=== PATIENT | female | born 1975 | race Caucasian/White ===

== ENCOUNTER 2018-06-15 07:24 | Day surgery (SDC) | payer OTHER ==
[~2018-06-15] VITALS: Ht 160 cm; Wt 104.1 kg
[~2018-06-15 07:24] MED LIST: ALPR.5 PO; AZIT250 PO; Albuterol17 G1 INH; CLINGEL IV; FAMO40 PO; HYDACE5 PO; HYDR1TAB94 PO; IBUP600 PO; IBUP800 PO; KETO10 PO; METO10 PO; MISO200 PO; MULVITMINE PO; Monodox100 MG PO; NAPR500 PO; Norco 5-325 Ta1 EACH PO; OXYACE5T PO; PANT20 PO; PRED10 PO; PREN-16 PO; PROBIOTIC1 EAC1 PO; PROCODE120 PO; PROM25 PO; Percocet 5-3251 EACH PO; Provera10 MG PO; RANI150 PO; RXHYDACE PO; SERT100 PO; SERT25 PO; SERT50 PO; SMOOTHLAX17 GM PO; Ventolin/Prove6.7 GM INH; Verotin-Gr Cap1 EACH PO; Vibramycin100 MG PO; Zofran Odt4 MG SL; Zofran Odt8 MG SL
[2018-06-15] MEDS ORDERED: Omeprazole20 M1 (08:14)
[2018-06-15] MEDS ORDERED: ONDA8 PO (08:14)
[2018-06-15] MEDS ORDERED: ALBU90OI (08:15)
--- NOTE | 2018-06-15 08:20 | NUR ---
06/15/18 0820 Lokesh Wolfe 1ST IV ATTEMPT IN RH UNSUCCESSFUL, ORSC.BDK 2ND IV ATTEMPT IN RW UNSUCCESSFUL, ORSC.BDK 3RD IV ATTEMPT IN RFA SUCCESSFUL, ORSC.FLL
== END 2018-06-15 09:56 | disposition home or self-care (01) ==
LOC: ORSCSDS 07:24
PROVIDERS: Student in an Organized Health Care Education/Training Program
PROC: 0DB58ZX Excision of Esophagus, Via Natural or Artificial Opening Endoscopic, Diagnostic (ICD-10-PCS; principal; 2018-06-15 08:45)
PROC: 0DB98ZX Excision of Duodenum, Via Natural or Artificial Opening Endoscopic, Diagnostic (ICD-10-PCS; principal; 2018-06-15 08:45)
PROC: 0DB48ZX Excision of Esophagogastric Junction, Via Natural or Artificial Opening Endoscopic, Diagnostic (ICD-10-PCS; principal; 2018-06-15 08:45)
DX: K21.9 Gastro-esophageal reflux disease without esophagitis (principal); R11.0 Nausea; K44.9 Diaphragmatic hernia without obstruction or gangrene; F32.9 Major depressive disorder, single episode, unspecified; I10 Essential (primary) hypertension; F17.210 Nicotine dependence, cigarettes, uncomplicated; E66.01 Morbid (severe) obesity due to excess calories; Z68.41 Body mass index [BMI] 40.0-44.9, adult; Z79.899 Other long term (current) drug therapy
CPT/HCPCS: 88305; 88342; J7120

== ENCOUNTER 2018-09-13 17:09 | Emergency (ER) | payer OTHER ==
[~2018-09-13] VITALS: Ht 160 cm; Wt 104.3 kg
[~2018-09-13 17:09] MED LIST changes: +ALBU90OI; +ONDA8 PO; +Omeprazole20 M1
[2018-09-13 17:44] LABS: Source, Urine Clean Catch
[2018-09-13 17:51] LABS: Appearance, Urine Clear (Clear); Bilirubin, Urine Neg (Neg); Blood, Urine 1+ (Neg); Color, Urine Yellow (P-Yellow); Glucose Qualitative, Urine Neg (Neg); Ketones, Urine Neg (Neg); Leukocyte Esterase, Urine Neg (Neg); Nitrite, Urine Neg (Neg); Protein, Urine Neg (Neg); Specific Gravity, Urine 1.015 (1.003-1.022); Urobilinogen, Urine NORM (Normal)
[2018-09-13 18:02] LABS: Bacteria Not Seen /hpf; Mucus Light (0-Heavy); Squamous Epithelial Cells Mod /hpf (Few); White Blood Cells, Urine 0-2 /hpf (0-5)
[2018-09-13 19:26] LABS: BASOPHILS ABSOLUTE AUTO 0.07 K/mm3 (0.00-0.23); BASOPHILS PERCENT AUTO 1 % (0-2); EOSINOPHILS ABSOLUTE AUTO 0.23 K/mm3 (0.00-0.68); EOSINOPHILS PERCENT AUTO 2 % (0-6); Hematocrit 43.7 % (33.0-51.0); Hemoglobin 14.1 g/dL (11.5-16.0); IMMATURE GRAN ABSOLUTE AUTO 0.08 K/mm3 (0.00-0.10); IMMATURE GRAN PERCENT AUTO 1 % (0-1); LYMPHOCYTES PERCENT AUTO 28 % (21-46); MONOCYTES PERCENT AUTO 3 % (4-13); Mean Corpuscular HGB 31.3 pg (26.0-34.0); Mean Corpuscular HGB Conc 32.3 g/dL (31.5-36.5); Mean Corpuscular Volume 97 fL (80-100); Mean Platelet Volume 9.9 fL (9.1-12.4); NEUTROPHILS ABSOLUTE AUTO 7.65 K/mm3 (1.96-9.15); NEUTROPHILS PERCENT AUTO 66 % (41-73); Platelet Count 245 K/mm3 (150-400); RDW Coefficient Variation 13.9 % (11.7-14.2); RDW Standard Deviation 49.8 fL (35.1-46.3); Red Blood Cell Count 4.51 M/mm3 (3.80-5.20); White Blood Cell Count 11.53 K/mm3 (4.00-11.30)
[2018-09-13 20:02] LABS: Alanine Aminotransfer (ALT/SGP 52 U/L (12-78); Albumin, Blood 3.9 g/dL (3.4-5.0); Albumin/Globulin Ratio 1.2 (0.8-1.8); Alk Phos 68 U/L (50-136); Anion Gap 9 mmol/L (6-16); Aspartate Aminotrans (AST/SGOT 28 U/L (12-37); Bilirubin, Total 0.8 mg/dL (0.1-1.0); Blood Urea Nitrogen 9 mg/dL (8-24); Bun/Creatinine Ratio 11.6 (12.0-20.0); CO2, Blood 23 mmol/L (21-32); Calcium, Blood 8.8 mg/dL (8.5-10.1); Chloride, Blood 106 mmol/L (98-108); Creatinine, Blood 0.78 mg/dL (0.40-1.00); Globulin, Blood 3.3 g/dL (2.2-4.0); Glomerular Filtration Rate >60 (60-); Glucose, Blood 97 mg/dL (70-99); Potassium, Blood 3.5 mmol/L (3.5-5.5); Sodium, Blood 138 mmol/L (136-145); Total Protein, Blood 7.2 g/dL (6.4-8.2)
== END 2018-09-13 20:58 | disposition home or self-care (01) ==
LOC: ER 17:09
PROVIDERS: Internal Medicine; Physician Assistant
DX: K76.0 Fatty (change of) liver, not elsewhere classified (principal); K21.9 Gastro-esophageal reflux disease without esophagitis; Z88.0 Allergy status to penicillin; Z88.1 Allergy status to other antibiotic agents; Z88.8 Allergy status to other drugs, medicaments and biological substances; Z79.899 Other long term (current) drug therapy; F32.9 Major depressive disorder, single episode, unspecified; Z87.891 Personal history of nicotine dependence
CPT/HCPCS: 76705; 80053; 81001; 81025; 83690; 85025; 96374; 96375; 96376; 99284-25; J2405; J3010

== ENCOUNTER 2019-06-11 06:51 | Emergency (ER) | payer OTHER ==
[~2019-06-11] VITALS: Ht 157.5 cm; Wt 101.6 kg
[2019-06-11 07:27] LABS: BASOPHILS ABSOLUTE AUTO 0.07 K/mm3 (0.00-0.23); BASOPHILS PERCENT AUTO 1 % (0-2); EOSINOPHILS PERCENT AUTO 1 % (0-6); Hematocrit 42.8 % (33.0-51.0); Hemoglobin 14.4 g/dL (11.5-16.0); IMMATURE GRAN ABSOLUTE AUTO 0.09 K/mm3 (0.00-0.10); IMMATURE GRAN PERCENT AUTO 1 % (0-1); LYMPHOCYTES ABSOLUTE AUTO 2.68 K/mm3 (0.84-5.20); LYMPHOCYTES PERCENT AUTO 30 % (21-46); MONOCYTES ABSOLUTE AUTO 0.47 K/mm3 (0.16-1.47); MONOCYTES PERCENT AUTO 5 % (4-13); Mean Corpuscular HGB 31.4 pg (26.0-34.0); Mean Corpuscular HGB Conc 33.6 g/dL (31.5-36.5); Mean Corpuscular Volume 93 fL (80-100); Mean Platelet Volume 9.8 fL (9.1-12.4); NEUTROPHILS ABSOLUTE AUTO 5.46 K/mm3 (1.96-9.15); NEUTROPHILS PERCENT AUTO 62 % (41-73); Platelet Count 249 K/mm3 (150-400); RDW Coefficient Variation 12.9 % (11.7-14.2); RDW Standard Deviation 44.4 fL (35.1-46.3); Red Blood Cell Count 4.58 M/mm3 (3.80-5.20); White Blood Cell Count 8.87 K/mm3 (4.00-11.30)
[2019-06-11 07:47] LABS: Alanine Aminotransfer (ALT/SGP 79 U/L (12-78); Albumin/Globulin Ratio 1.1 (0.8-1.8); Alk Phos 59 U/L (50-136); Anion Gap 12 mmol/L (6-16); Aspartate Aminotrans (AST/SGOT 68 U/L (12-37); Bilirubin, Total 0.6 mg/dL (0.1-1.0); Blood Urea Nitrogen 10 mg/dL (8-24); Bun/Creatinine Ratio 12.8 (12.0-20.0); CO2, Blood 17 mmol/L (21-32); Calcium, Blood 9.2 mg/dL (8.5-10.1); Chloride, Blood 110 mmol/L (98-108); Creatinine, Blood 0.78 mg/dL (0.40-1.00); Globulin, Blood 3.6 g/dL (2.2-4.0); Glomerular Filtration Rate >60 (60-); Glucose, Blood 103 mg/dL (70-99); Potassium, Blood 3.8 mmol/L (3.5-5.5); Sodium, Blood 139 mmol/L (136-145); Total Protein, Blood 7.6 g/dL (6.4-8.2)
[2019-06-11 08:52] LABS: Source, Urine Clean Catch
[2019-06-11 08:56] LABS: Bilirubin, Urine Neg (Neg); Blood, Urine Neg (Neg); Glucose Qualitative, Urine Neg (Neg); Ketones, Urine Neg (Neg); Leukocyte Esterase, Urine 1+ (Neg); Nitrite, Urine Neg (Neg); Protein, Urine Neg (Neg); Urobilinogen, Urine NORM (Normal)
[2019-06-11 09:02] LABS: Appearance, Urine Clear (Clear); Color, Urine Yellow (P-Yellow)
[2019-06-11 09:05] LABS: Bacteria Mod /hpf; Red Blood Cells, Urine 0-2 /hpf (0-2); Squamous Epithelial Cells Mod /hpf (Few)
[2019-06-11] MEDS ORDERED: ALBU90OI INH (09:53)
[2019-06-11] MEDS ORDERED: Prednisone20 MG PO (09:53)
== END 2019-06-11 10:50 | disposition home or self-care (01) ==
LOC: ER 06:51
PROVIDERS: Emergency Medicine
DX: R06.02 Shortness of breath (principal); Z88.0 Allergy status to penicillin; Z88.8 Allergy status to other drugs, medicaments and biological substances; Z88.1 Allergy status to other antibiotic agents; Z79.899 Other long term (current) drug therapy; F32.9 Major depressive disorder, single episode, unspecified; Z87.891 Personal history of nicotine dependence
CPT/HCPCS: 71046; 76705; 80053; 81001; 83690; 84484; 85025; 85379; 87086; 93005; 93010; 96361; 96374; 96375; 99284-25; J2405; J3010; J7030

== ENCOUNTER 2019-08-03 16:26 | Emergency (ER) | payer OTHER ==
[~2019-08-03] VITALS: Ht 160 cm; Wt 100.2 kg
[~2019-08-03 16:26] MED LIST changes: +ALBU90OI INH; +Prednisone20 MG PO
[2019-08-03 17:38] LABS: BASOPHILS ABSOLUTE AUTO 0.05 K/mm3 (0.00-0.23); BASOPHILS PERCENT AUTO 0 % (0-2); EOSINOPHILS ABSOLUTE AUTO 0.28 K/mm3 (0.00-0.68); EOSINOPHILS PERCENT AUTO 2 % (0-6); Hematocrit 47.2 % (33.0-51.0); Hemoglobin 15.8 g/dL (11.5-16.0); IMMATURE GRAN ABSOLUTE AUTO 0.09 K/mm3 (0.00-0.10); IMMATURE GRAN PERCENT AUTO 1 % (0-1); LYMPHOCYTES ABSOLUTE AUTO 2.26 K/mm3 (0.84-5.20); LYMPHOCYTES PERCENT AUTO 15 % (21-46); MONOCYTES PERCENT AUTO 3 % (4-13); Mean Corpuscular HGB 31.5 pg (26.0-34.0); Mean Corpuscular HGB Conc 33.5 g/dL (31.5-36.5); Mean Corpuscular Volume 94 fL (80-100); Mean Platelet Volume 9.5 fL (9.1-12.4); NEUTROPHILS ABSOLUTE AUTO 11.83 K/mm3 (1.96-9.15); NEUTROPHILS PERCENT AUTO 79 % (41-73); Platelet Count 259 K/mm3 (150-400); RDW Coefficient Variation 13.5 % (11.7-14.2); Red Blood Cell Count 5.01 M/mm3 (3.80-5.20); White Blood Cell Count 15.01 K/mm3 (4.00-11.30)
[2019-08-03 17:56] LABS: Alanine Aminotransfer (ALT/SGP 44 U/L (12-78); Albumin, Blood 4.3 g/dL (3.4-5.0); Albumin/Globulin Ratio 1.2 (0.8-1.8); Alk Phos 63 U/L (50-136); Anion Gap 5 mmol/L (6-16); Aspartate Aminotrans (AST/SGOT 26 U/L (12-37); Bilirubin, Total 0.8 mg/dL (0.1-1.0); Blood Urea Nitrogen 12 mg/dL (8-24); Bun/Creatinine Ratio 13.1 (12.0-20.0); CO2, Blood 23 mmol/L (21-32); Calcium, Blood 9.8 mg/dL (8.5-10.1); Chloride, Blood 107 mmol/L (98-108); Creatinine, Blood 0.91 mg/dL (0.40-1.00); Globulin, Blood 3.7 g/dL (2.2-4.0); Glomerular Filtration Rate >60 (60-); Glucose, Blood 111 mg/dL (70-99); Potassium, Blood 3.4 mmol/L (3.5-5.5); Sodium, Blood 135 mmol/L (136-145)
[2019-08-03 18:23] LABS: Source, Urine Clean Catch
[2019-08-03 18:33] LABS: Bilirubin, Urine Neg (Neg); Blood, Urine 1+ (Neg); Glucose Qualitative, Urine Neg (Neg); Ketones, Urine Neg (Neg); Leukocyte Esterase, Urine 1+ (Neg); Nitrite, Urine Neg (Neg); Protein, Urine 2+ (Neg); Urobilinogen, Urine NORM (Normal)
[2019-08-03 19:02] LABS: Appearance, Urine Clear (Clear); Color, Urine Yellow (P-Yellow)
[2019-08-03 19:04] LABS: Bacteria Few /hpf; Red Blood Cells, Urine 0-2 /hpf (0-2); Squamous Epithelial Cells Mod /hpf (Few)
[2019-08-03] MEDS ORDERED: MIRALAX17 GM PO (19:27)
[2019-08-03] MEDS ORDERED: LOPE2C PO (20:21)
[2019-08-03] MEDS ORDERED: COMPAZINE10 MG PO (20:21)
== END 2019-08-03 20:30 | disposition home or self-care (01) ==
LOC: ER 16:26
PROVIDERS: Physician Assistant
DX: K52.9 Noninfective gastroenteritis and colitis, unspecified (principal); F32.9 Major depressive disorder, single episode, unspecified; K21.9 Gastro-esophageal reflux disease without esophagitis; F17.210 Nicotine dependence, cigarettes, uncomplicated
CPT/HCPCS: 36415; 74177; 80053; 81001; 83690; 85025; 87086; 99284-25; A9270-GY; Q9967

== ENCOUNTER 2019-08-04 19:05 | Inpatient (IN) | payer OTHER ==
[~2019-08-04] VITALS: Ht 160 cm; Wt 100.2 kg
[~2019-08-04 19:05] MED LIST changes: +COMPAZINE10 MG PO; +LOPE2C PO; +MIRALAX17 GM PO
[2019-08-04 19:30] LABS: BASOPHILS ABSOLUTE AUTO 0.06 K/mm3 (0.00-0.23); BASOPHILS PERCENT AUTO 1 % (0-2); EOSINOPHILS ABSOLUTE AUTO 0.31 K/mm3 (0.00-0.68); EOSINOPHILS PERCENT AUTO 2 % (0-6); Hematocrit 47.1 % (33.0-51.0); Hemoglobin 15.5 g/dL (11.5-16.0); IMMATURE GRAN ABSOLUTE AUTO 0.09 K/mm3 (0.00-0.10); IMMATURE GRAN PERCENT AUTO 1 % (0-1); LYMPHOCYTES ABSOLUTE AUTO 3.05 K/mm3 (0.84-5.20); LYMPHOCYTES PERCENT AUTO 24 % (21-46); MONOCYTES ABSOLUTE AUTO 0.48 K/mm3 (0.16-1.47); MONOCYTES PERCENT AUTO 4 % (4-13); Mean Corpuscular HGB 31.1 pg (26.0-34.0); Mean Corpuscular HGB Conc 32.9 g/dL (31.5-36.5); Mean Corpuscular Volume 94 fL (80-100); Mean Platelet Volume 9.7 fL (9.1-12.4); NEUTROPHILS PERCENT AUTO 69 % (41-73); Platelet Count 251 K/mm3 (150-400); RDW Coefficient Variation 13.4 % (11.7-14.2); RDW Standard Deviation 46.4 fL (35.1-46.3); Red Blood Cell Count 4.99 M/mm3 (3.80-5.20); White Blood Cell Count 12.69 K/mm3 (4.00-11.30)
[2019-08-04 19:51] LABS: Alanine Aminotransfer (ALT/SGP 45 U/L (12-78); Albumin, Blood 4.1 g/dL (3.4-5.0); Albumin/Globulin Ratio 1.1 (0.8-1.8); Alk Phos 65 U/L (50-136); Anion Gap 8 mmol/L (6-16); Aspartate Aminotrans (AST/SGOT 31 U/L (12-37); Bilirubin, Total 0.7 mg/dL (0.1-1.0); Blood Urea Nitrogen 12 mg/dL (8-24); Bun/Creatinine Ratio 12.2 (12.0-20.0); CO2, Blood 20 mmol/L (21-32); Calcium, Blood 9.4 mg/dL (8.5-10.1); Chloride, Blood 105 mmol/L (98-108); Creatinine, Blood 0.98 mg/dL (0.40-1.00); Globulin, Blood 3.7 g/dL (2.2-4.0); Glomerular Filtration Rate >60 (60-); Glucose, Blood 129 mg/dL (70-99); Potassium, Blood 3.2 mmol/L (3.5-5.5); Sodium, Blood 133 mmol/L (136-145); Total Protein, Blood 7.8 g/dL (6.4-8.2)
[2019-08-04 20:03] LABS: Source, Urine Clean Catch
[2019-08-04 20:05] LABS: Appearance, Urine Clear (Clear); Bilirubin, Urine Neg (Neg); Blood, Urine 2+ (Neg); Color, Urine Amber (P-Yellow); Glucose Qualitative, Urine Neg (Neg); Ketones, Urine 1+ (Neg); Leukocyte Esterase, Urine 1+ (Neg); Nitrite, Urine Neg (Neg); Protein, Urine 1+ (Neg); Specific Gravity, Urine 1.015 (1.003-1.022); Urobilinogen, Urine NORM (Normal)
[2019-08-04 20:12] LABS: Bacteria Mod /hpf; Red Blood Cells, Urine 0-2 /hpf (0-2); Squamous Epithelial Cells Mod /hpf (Few); White Blood Cells, Urine 0-2 /hpf (0-5)
[2019-08-05 05:37] LABS: BASOPHILS ABSOLUTE AUTO 0.04 K/mm3 (0.00-0.23); BASOPHILS PERCENT AUTO 0 % (0-2); EOSINOPHILS PERCENT AUTO 3 % (0-6); Hematocrit 40.4 % (33.0-51.0); Hemoglobin 12.9 g/dL (11.5-16.0); IMMATURE GRAN ABSOLUTE AUTO 0.06 K/mm3 (0.00-0.10); IMMATURE GRAN PERCENT AUTO 1 % (0-1); LYMPHOCYTES ABSOLUTE AUTO 2.36 K/mm3 (0.84-5.20); LYMPHOCYTES PERCENT AUTO 24 % (21-46); MONOCYTES ABSOLUTE AUTO 0.31 K/mm3 (0.16-1.47); MONOCYTES PERCENT AUTO 3 % (4-13); Mean Corpuscular HGB 30.7 pg (26.0-34.0); Mean Corpuscular HGB Conc 31.9 g/dL (31.5-36.5); Mean Corpuscular Volume 96 fL (80-100); Mean Platelet Volume 10.2 fL (9.1-12.4); NEUTROPHILS ABSOLUTE AUTO 6.76 K/mm3 (1.96-9.15); NEUTROPHILS PERCENT AUTO 69 % (41-73); Platelet Count 205 K/mm3 (150-400); RDW Coefficient Variation 13.3 % (11.7-14.2); RDW Standard Deviation 47.2 fL (35.1-46.3); White Blood Cell Count 9.83 K/mm3 (4.00-11.30)
--- NOTE | 2019-08-05 05:45 | NUR ---
SOLE STAINER SUMMARY Slept well. No nausea, vomiting or diarrhea overnight. Patient did complain of moderate to severe abdominal pain twice, which was relieved each time with one mg IV dilaudid. unable to tolerate K rider running at 25ml/hr into AC IV, New 20 guage IV started left forearm. Patient still had to have 100ml bag run in over 4 hour period. up independently in room with steady and equal gait. NPO per order.
[2019-08-05 06:16] LABS: Anion Gap 8 mmol/L (6-16); Blood Urea Nitrogen 9 mg/dL (8-24); Bun/Creatinine Ratio 9.1 (12.0-20.0); CO2, Blood 23 mmol/L (21-32); Calcium, Blood 8.4 mg/dL (8.5-10.1); Chloride, Blood 110 mmol/L (98-108); Cholesterol 181 mg/dL (50-200); Creatinine, Blood 0.99 mg/dL (0.40-1.00); Glomerular Filtration Rate >60 (60-); Glucose, Blood 95 mg/dL (70-99); Potassium, Blood 3.7 mmol/L (3.5-5.5); Sodium, Blood 141 mmol/L (136-145); Triglycerides 197 mg/dL (30-160)
--- NOTE | 2019-08-05 16:47 | NUR ---
PT IS A/OX3, PLEASANT AND COOPERATIVE, THE PT IS UP IND, THE PT APPEARS TO BE BREATHING EASILY ON RA AT THIS TIME, THE PT WAS STARTED ON A CLEAR LIQUID DIET TODAY, HOWEVER REORTS THE SHE IS STILL HAVING PAIN EVEN WITH JUST SMALL SIPS OF WATER, PT WAS MEDICATED FOR PAIN X2 SO FAR THIS SHIFT, AND FOR NAUSEA X1 SO FAR THIS SHIFT, FAMILY IS AT THE BEDSIDE AT THIS TIME, CALL LIGHT IN REACH WILL CONTINUE TO MONITOR AND ASSESS FOR CHANGES
--- NOTE | 2019-08-06 04:07 | NUR ---
RESIDENTIAL SALES REPRESENTATIVE SUMMARY slept well except for waking twice to urinate. Per patient, no nausea or stools (loose or otherwise), since am of admission on 07/07 with exception of severe nausea and abd pain after waking around 0100 to urinate. Nausea and pain both resolved with IV zofran and dilauded after approx 15 minutes. Pt still anxious about taking any clears other than h20. she feels she is risking feeling severly nauseated all over again.
[2019-08-06 05:01] LABS: BASOPHILS ABSOLUTE AUTO 0.04 K/mm3 (0.00-0.23); BASOPHILS PERCENT AUTO 1 % (0-2); EOSINOPHILS ABSOLUTE AUTO 0.29 K/mm3 (0.00-0.68); EOSINOPHILS PERCENT AUTO 4 % (0-6); Hematocrit 40.9 % (33.0-51.0); Hemoglobin 13.1 g/dL (11.5-16.0); IMMATURE GRAN ABSOLUTE AUTO 0.07 K/mm3 (0.00-0.10); IMMATURE GRAN PERCENT AUTO 1 % (0-1); LYMPHOCYTES ABSOLUTE AUTO 1.71 K/mm3 (0.84-5.20); LYMPHOCYTES PERCENT AUTO 21 % (21-46); MONOCYTES ABSOLUTE AUTO 0.28 K/mm3 (0.16-1.47); MONOCYTES PERCENT AUTO 3 % (4-13); Mean Corpuscular HGB 31.3 pg (26.0-34.0); Mean Corpuscular Volume 98 fL (80-100); Mean Platelet Volume 9.6 fL (9.1-12.4); NEUTROPHILS ABSOLUTE AUTO 5.79 K/mm3 (1.96-9.15); NEUTROPHILS PERCENT AUTO 71 % (41-73); Platelet Count 175 K/mm3 (150-400); RDW Coefficient Variation 13.4 % (11.7-14.2); RDW Standard Deviation 48.6 fL (35.1-46.3); Red Blood Cell Count 4.19 M/mm3 (3.80-5.20); White Blood Cell Count 8.18 K/mm3 (4.00-11.30)
[2019-08-06 05:19] LABS: Anion Gap 5 mmol/L (6-16); Blood Urea Nitrogen 6 mg/dL (8-24); Bun/Creatinine Ratio 6.6 (12.0-20.0); CO2, Blood 23 mmol/L (21-32); Calcium, Blood 8.1 mg/dL (8.5-10.1); Chloride, Blood 111 mmol/L (98-108); Creatinine, Blood 0.91 mg/dL (0.40-1.00); Glomerular Filtration Rate >60 (60-); Glucose, Blood 83 mg/dL (70-99); Sodium, Blood 139 mmol/L (136-145)
--- NOTE | 2019-08-06 16:10 | NUR ---
Advance directive education conducted. Upon receiving an admit referral for advance care information, I visit patient. Patient is sitting up in bed and alert. Patient catches me up on her medical issues, her family and care plan. Pateint expresses interest in advance directive education. I explain about it's importance, it's comntent and the filing process. Patient receives the booklet and states that she will go over the material with her family and hand in the forms either at the hospital or her PCP.
--- NOTE | 2019-08-06 19:25 | NUR ---
BEDSIDE REPORT GIVEN BY STUDENT NURSE AND NOAH WORKMAN RN. PT LYING IN BED WATCHING TV. IVF INFUSING TO LEFT ARM IV WITHOUT DIFFICULTY. RESP E/U ON RA. RATES ABDOMINAL PAIN 6/10, REQUESTS PAIN MED AT THIS TIME. INFORMED PT THAT THIS RN WOULD LOOK AT CHART AND SEE WHEN NEXT PAIN MED DUE. WILL CONTINUE TO MONITOR AND PROVIDE CARE T/O SHIFT. CALL LT IN REACH.
--- NOTE | 2019-08-06 19:35 | NUR ---
SHIFT SUMMARY: NO ACUTE CHANGES TO REPORT THIS SHIFT. PT A&O; CALM AND COOPERATIVE WITH CARE. PT INDEPENDENT IN ROOM; MEDICATED FOR ABD PAIN & NAUSEA PER EMAR. PT ONLY TOLERATING SIPS OF WATER & HOT TEA. IV PAIN MEDS & REHYDRATION CONTINUING. REPORT GIVEN TO ONCOMING RN.
--- NOTE | 2019-08-06 19:56 | NUR ---
STILL PAINFUL, NO NAUSEA.
--- NOTE | 2019-08-06 20:10 | NUR ---
PT UP AMBULATING IN ROOM. STATES DOING MUCH BETTER. NO NAUSEA.
--- NOTE | 2019-08-06 21:25 | NUR ---
NEW BAG OF IVF NS WITH 20 MEQ KCL HUNG AND INFUSING AT 100 MLS/HR. PT RESTING QUIETLY LYING ON RIGHT SIDE. RESP E/U. CALL LT IN REACH.
--- NOTE | 2019-08-07 04:01 | NUR ---
SHIFT SUMMARY: A/O. INDEPENDENT IN RM. ON RA. NS WITH 20 MEQ KCL INFUSING AT 100 MLS/HR. MEDICATED X 2 FOR UPPER GASTRIC PAIN WITH 1 MG DILAUDID IV WITH GOOD PAIN RELIEF. NO NAUSEA DURING SHIFT. TOLERATED SOME CLEAR LIQUIDS. PLAN IS TO ADVANCE DIET TOLERATED. NO ACUTE CHANGES. WILL CONTINUE TO MONITOR AND PROVIDE CARE UNTIL SHIFT REPORT.
--- NOTE | 2019-08-07 18:51 | NUR ---
Met patient and she agreed to let me work with her tomorrow, 08/07/19.
--- NOTE | 2019-08-07 19:46 | NUR ---
SHIFT SUMMARY: PT A&O; CALM AND COOPERATIVE WITH CARE. MEDICATED FOR PERSISTENT EPIGASTRIC PAIN PER EMAR. GI CONSULT (DR GARCÍA) THIS SHIFT; PT NPO SINCE 1500 TODAY; EGD PLANNED FOR 08/07. REPORT GIVEN TO ONCOMING RN.
--- NOTE | 2019-08-07 21:59 | NUR ---
08/07/2019 2200 Pt still having very small amt of loose stool, green brown in color. Stool sample was sent at beginning of shift, results still pending. Pt medicated for upper abd pain 10/13. Pt denies nausia. Pt is up independantly in room. Will continue to monitor.
[2019-08-08 00:13] LABS: Adenovirus F 40/41 Not Detected (NOT DETECT); Astrovirus Not Detected (NOT DETECT); Campylobacter Sp Not Detected (NOT DETECT); Cryptosporidium Not Detected (NOT DETECT); Cyclospora Cayetanensis Not Detected (NOT DETECT); E. Coli O157 Not Detected (NOT DETECT); Entamoeba Histolytica Not Detected (NOT DETECT); Enteroaggregative E. coli-EAEC Not Detected (NOT DETECT); Enteropathogenic E. coli-EPEC Not Detected (NOT DETECT); Enterotoxigenic E. coli-ETEC Not Detected (NOT DETECT); Giardia Lamblia Not Detected (NOT DETECT); Norovirus GI/GII Not Detected (NOT DETECT); Plesiomonas Shigelloides Not Detected (NOT DETECT); Rotavirus A Not Detected (NOT DETECT); Salmonella Sp Not Detected (NOT DETECT); Sapovirus Not Detected (NOT DETECT); Shiga Toxin-prod E. coli-STEC Not Detected (NOT DETECT); Shigella/Enteroin E. coli-EIEC Not Detected (NOT DETECT); Vibrio Cholerae Not Detected (NOT DETECT); Vibrio Sp Not Detected (NOT DETECT); Yersinia Enterocolitica Not Detected (NOT DETECT)
[2019-08-08 05:20] LABS: BASOPHILS ABSOLUTE AUTO 0.05 K/mm3 (0.00-0.23); BASOPHILS PERCENT AUTO 1 % (0-2); EOSINOPHILS ABSOLUTE AUTO 0.39 K/mm3 (0.00-0.68); EOSINOPHILS PERCENT AUTO 5 % (0-6); Hematocrit 42.5 % (33.0-51.0); Hemoglobin 13.7 g/dL (11.5-16.0); IMMATURE GRAN ABSOLUTE AUTO 0.06 K/mm3 (0.00-0.10); IMMATURE GRAN PERCENT AUTO 1 % (0-1); LYMPHOCYTES ABSOLUTE AUTO 1.46 K/mm3 (0.84-5.20); LYMPHOCYTES PERCENT AUTO 18 % (21-46); MONOCYTES ABSOLUTE AUTO 0.39 K/mm3 (0.16-1.47); MONOCYTES PERCENT AUTO 5 % (4-13); Mean Corpuscular HGB 31.1 pg (26.0-34.0); Mean Corpuscular HGB Conc 32.2 g/dL (31.5-36.5); Mean Corpuscular Volume 97 fL (80-100); Mean Platelet Volume 9.5 fL (9.1-12.4); NEUTROPHILS ABSOLUTE AUTO 5.86 K/mm3 (1.96-9.15); NEUTROPHILS PERCENT AUTO 71 % (41-73); Platelet Count 197 K/mm3 (150-400); RDW Coefficient Variation 13.2 % (11.7-14.2); RDW Standard Deviation 47.2 fL (35.1-46.3); White Blood Cell Count 8.21 K/mm3 (4.00-11.30)
--- NOTE | 2019-08-08 05:35 | NUR ---
Rn summary: Patient is alert and oriented and has been up independantly in room. Pt has had 2 small loose stools this shift. Stool panel was negative. Patient has been medicated x3 with Dilaudid 1mg for upper abdominal pain. Pt woke up nausiated and received zofran 4 mg. Pt states she rested well last night. She remains NPO. Pt on IV fluids. Pt plan for ECG today. Call light in reach. Will contine to monitor.
[2019-08-08 05:40] LABS: Alanine Aminotransfer (ALT/SGP 46 U/L (12-78); Albumin, Blood 3.3 g/dL (3.4-5.0); Alk Phos 52 U/L (50-136); Anion Gap 7 mmol/L (6-16); Aspartate Aminotrans (AST/SGOT 35 U/L (12-37); Bilirubin, Total 0.8 mg/dL (0.1-1.0); Blood Urea Nitrogen 6 mg/dL (8-24); Bun/Creatinine Ratio 7.3 (12.0-20.0); CO2, Blood 22 mmol/L (21-32); Calcium, Blood 8.7 mg/dL (8.5-10.1); Chloride, Blood 110 mmol/L (98-108); Creatinine, Blood 0.82 mg/dL (0.40-1.00); Globulin, Blood 3.2 g/dL (2.2-4.0); Glomerular Filtration Rate >60 (60-); Glucose, Blood 89 mg/dL (70-99); Potassium, Blood 4.1 mmol/L (3.5-5.5); Sodium, Blood 139 mmol/L (136-145); Total Protein, Blood 6.5 g/dL (6.4-8.2)
--- NOTE | 2019-08-08 14:48 | NUR ---
PT INTO SDS VIA BED FROM MED FLOOR. PT STATED NPO STATUS. VSS. PRE OP TEACHING GIVEN.
--- NOTE | 2019-08-08 15:05 | NUR ---
TO DAY SUG APPROX [id number]
--- NOTE | 2019-08-08 15:59 | NUR ---
08/08/19 1559 ABIMAEL PEARCE History, Chart, Medications and Allergies reviewed before start of procedure. 3-LEAD EKG REVIEWED WITH PHYSICIAN PRIOR TO START OF PROCEDURE. O2 VIA N/C INTACT THROUGHOUT SEDATION/PROCEDURE. MONITOR INTACT WITH CONTINUOUS PULSE OXIMETRY AND INTERMITTENT BP. MAC WITH DR. MONTESINOS.
--- NOTE | 2019-08-08 16:53 | NUR ---
PT BACK FROM DAY SURG. 1615. SETTLED TO BED. PT STATE FEELS WELL. VSS
--- NOTE | 2019-08-08 19:29 | NUR ---
PT BACK FROM DAY SURG 1615. PT AMBULATED TO BATHROOM, AND TO CHRISTY ONCE. INDEPENDANT. STATES FEELS PRETTY GOOD. TREATED FOR PAIN ONCE SINCE RETURN. NO OTHER CONCERNS AT THIS TIME. ON CLEAR LIQUID DIET. BED IN LOW POSITION, CALL LITE IN REACH, CALLS APPROP. HAS BEEN ON PHONE MOST OF DAY
--- NOTE | 2019-08-09 07:15 | NUR ---
Rn summary: Patient did not tolerate cl lig dinner, had increased pain. Medicated with Diludid 1mg and had good pain control with no nausia. Pt slept well, getting IV fluids, NS with 20 KCLat 100. Patient woke up nausiated this am, wretching hard in BR, emisis is white thick mucus, she does have some nasal drainage. Pt was medicated with zofran and pepcid. Pt had inreasing pain over the next hour, 7/10 sharp. Medicated with dilaudid 1mg with only slight relief after 35 minutes. Pt remains independant in room. Call light in reach. Report to Jr WOODWARD.
--- NOTE | 2019-08-09 09:14 | NUR ---
PT TO MRI AND ABD XRAY, ATIVAN GIVEN PRIOR TO MRI DUE TO CLAUSTROPHOBIA.
[2019-08-09 12:10] LABS: FATS, NEUTRAL Normal (.); FATS, TOTAL Normal (.)
--- NOTE | 2019-08-09 16:41 | NUR ---
SHIFT SUMMARY- PT A/O, PLEASANT AND COOPERATIVE. PT MEDICATED X1 FOR NAUSEA AND X1 FOR PAIN. PT CONT TO REPORT UPPER ABD/ EPIGASTRIC PAIN. MRI AND ABD XRAY COMPLETED, PT STARTED ON IV ABX. PT ONLY ABLE TO TOLERATE WATER, TEA, AND GELATIN TODAY. PT REMAINS ON IVF. LS CLEAR, ON RA. HRR. NO OTHER ACUTE CHANGES THIS SHIFT.
--- NOTE | 2019-08-10 06:20 | NUR ---
Rn summary: Patient assessment remains the same. Pt did have nausia this am but no emisis. Pt rested well all night. Medicated at HS and this am for sharp upper abdominal pain with dilaudid 1 mg. Pt does get good relief with meds for pain and nausia. Pt still not tolerating intake. Up independantly in room. Call light in reach.
--- NOTE | 2019-08-10 18:34 | NUR ---
SHIFT SUMMARY- PT IS VERY ACTIVE WALKING THE HALLS EARLY THIS MORNING AND WAS FOUND MARCHING IN HER ROOM THIS AFTERNOON. PT STATED SHE DOESN'T LIKE TO WALK PAST ALL THE OPEN ROOMS DURING THE DAY, IT MAKES HER UNCOMFORTABLE. PAIN MANAGEMENT WAS CHANGED TO PO, DIET INCREASED TO FULL LIQUID FROM CLEARS, AND IVF DC'D. PT IS STILL ON 2 IV ABX AT THIS TIME AND HER CRP ON MORNING LABS WAS REDUCED AGAIN, TRENDING IN THE RIGHT DIRECTION. RENAL FUNCTION PANEL ORDERED FOR THE MORNING. POSSIBLE DC IF SHE IS ABLE TO TOLLERATE THE FULL LIQUID DIET TOMORROW. REGLAN WAS CHANGED TO 5MG PO SCHEDULED. NO ZOFRAN WAS GIVEN THIS SHIFT. PO PAIN MEDICATION NOT YET GIVEN. PAIN HAS BEEN WELL MANAGED SINCE ORDER CHANGE; HOWEVER PT HAS STATED THAT SHE THINKS SHE OVER ATE AT DINNER WITH HER FULL LIQUID TRAY. WILL CTM AND PASS ON TO NIGHT RN IN REPORT.
--- NOTE | 2019-08-11 04:53 | NUR ---
SHIFT SUMMARY PT PLEASANT AND COOPERATIVE WITH CARE. AAOX4. RESP E/U. TREATED FOR ABD PAIN ONCE AT SHIFT CHANGE PER EMAR. THIS REDUCED PAIN DOWN TO A 1 PER PT AND SHE HAS HAD NO COMPLAINTS OF PAIN SINCE. HAS SLEPT MUCH OF THE NIGHT. VSS. APPEARS IN NO ACUTE DISTRESS. NO COMPLAINTS N/V. WILL CONTINUE TO MONITOR.
[2019-08-11 06:25] LABS: Albumin, Blood 3.6 g/dL (3.4-5.0); Anion Gap 9 mmol/L (6-16); Blood Urea Nitrogen 7 mg/dL (8-24); Bun/Creatinine Ratio 7.3 (12.0-20.0); CO2, Blood 23 mmol/L (21-32); Calcium, Blood 9.1 mg/dL (8.5-10.1); Chloride, Blood 108 mmol/L (98-108); Creatinine, Blood 0.95 mg/dL (0.40-1.00); Glomerular Filtration Rate >60 (60-); Glucose, Blood 92 mg/dL (70-99); Phosphorus, Blood 3.8 mg/dL (2.5-4.9); Potassium, Blood 3.7 mmol/L (3.5-5.5); Sodium, Blood 140 mmol/L (136-145)
--- NOTE | 2019-08-11 17:16 | NUR ---
SHIFT SUMMARY- PT ALERT, ORIENTED AND INDEPENDENT IN THE HALLS. PT HAS AMBULATED THE ENTIRE UNIT THREE TIMES TODAY. PT STATED HE HAD A BM AFTER EACH WALK EACH ONE INCREASING IN QUANTITY, PT STATES LITZY IS STILL LOOSE. PT C/O SOME ABDOMINAL DISCOMFORT THIS EVENING THAT FELT LIKE GAS AND WAS GIVEN THE SIMETHICONE CHEWS. WILL CTM. PT NO LONGER ON IV FLUIDS, TYLENOL IS MANAGING THE PAIN APPROPRIATELY (PER THE PT). PT HAS HAD NO ACUTE CHANGES T/O THE SHIFT. PT LAYING IN BED CALL LIGHT IN REACH DINNER SHOULD ARRIVE SOON; PT ON CLEAR LIQUID, DIET SEEMS TO TOLLERATE WELL. WILL CTM AND PASS ON IN BEDSIDE REPORT TO NIGHT RN.
--- NOTE | 2019-08-11 17:26 | NUR ---
SHIFT SUMMARY- PT PAIN APPEARS TO BE WELL MANAGED WITH PO PAIN MEDICINE. SCHEDULED REGLAN SEEMS TO BE PREVENTING NAUSEA, ORDER RECIEVED TO ADVANCE DIET TOLLERATED, INCREASED TO SOFT BITE SIZED FOODS. PT BECAME NAUSEATED AFTER THE FIRST MEAL WITH THIS BUT DID NOT RECIEVE THE REGLAN UNTIL SHE WAS PART WAY THROUGH EATING. THIS EVENING THE DOSE WAS GIVEN 30 MINUTES PRIOR TO WHEN FOOD IS EXPECTED, WILL SEE HOW PT TOLLERATES THIS MEAL. PT IS ALERT, ORIENTED AND INDEPENDENT IN THE HALLS. ALL IV MEDS SWITCHED TO PO TODAY AND PT SEEMS TO BE TOLLERATING THEM WELL. NO ACUTE CHANGES T/O THE DAY. POSSIBLE DISCHARGE TOMORROW IF PT CONTINUES TO IMPROVE.
--- NOTE | 2019-08-12 07:21 | NUR ---
SHIFT SUMMARY PT PLEASANT AND COOPERATIVE WITH CARE. VSS. SLEPT MUCH OF THE NIGHT WITH NO COMPLAINTS OF PAIN OR DISCOMFORT. STATES SHE FEELS IMPROVED. NO ACUTE CHANGES NOTED THIS NIGHT. REPORT TO ONCOMING RN.
[2019-08-12] MEDS ORDERED: CIPR500 PO (10:04)
[2019-08-12] MEDS ORDERED: PANT40 PO (10:04)
[2019-08-12] MEDS ORDERED: METO10 PO (10:05)
[2019-08-12] MEDS ORDERED: ACET325 PO (10:08)
[2019-08-12] MEDS ORDERED: METR500 PO (10:08)
--- NOTE | 2019-08-12 10:35 | NUR ---
DISCHARGE NOTE- PT WAS GIVEN VERBAL AND WRITTEN DISCHARGE INSTRUCTIONS AND ACKNOWLEDGED UNDERSTANDING OF THEM. PT MEDS WERE FAXED TO [facility] PER THE PT REQUEST, IV WAS DC'D AFTER DISCHARGE TEACHING COMPLETED. PT CALLED HER SPOUSE TO COME GET HER AND BRING HER CLOTHES HE TOOK HERS HOME TO WASH SO THE PT HAS NO CLOTHING TO GET READY TO GO. PT READY TO GO HOME POSSIBLE AT THIS TIME.
== END 2019-08-12 10:55 | disposition home or self-care (01) | DRG 392 ==
LOC: ER 19:05 → MEDS 19:06
PROVIDERS: Internal Medicine; Internal Medicine Gastroenterology; Nurse Practitioner Acute Care; Physician Assistant; ADMIT Family Medicine
PROC: 3E02340 Introduction of Influenza Vaccine into Muscle, Percutaneous Approach (ICD-10-PCS; 2019-08-08)
PROC: 0DJ08ZZ Inspection of Upper Intestinal Tract, Via Natural or Artificial Opening Endoscopic (ICD-10-PCS; principal; 2019-08-08 15:45)
DX: K29.80 Duodenitis without bleeding (principal); E87.1 Hypo-osmolality and hyponatremia; K21.0 Gastro-esophageal reflux disease with esophagitis; E86.0 Dehydration; E87.6 Hypokalemia; F32.9 Major depressive disorder, single episode, unspecified; Z87.891 Personal history of nicotine dependence; Z23 Encounter for immunization; K76.0 Fatty (change of) liver, not elsewhere classified; K31.84 Gastroparesis; K52.9 Noninfective gastroenteritis and colitis, unspecified; F41.9 Anxiety disorder, unspecified
CPT/HCPCS: 0097U; 36415; 74019; 74181; 76705; 80048; 80053; 80069; 81001; 82465; 82705; 83690; 84478; 85025; 86140; 87086; 88305; 88342; 90686; 96361; 96365; 96375; 96376; 99285-25; A9270-GY; C9113; G0008; G0378; J0744; J0780; J1170; J1200; J2060; J2405; J2704; J3480; J7120

== ENCOUNTER 2021-01-11 16:06 | Emergency (ER) | payer OTHER ==
[~2021-01-11] VITALS: Ht 157.5 cm; Wt 99.8 kg
[~2021-01-11 16:06] MED LIST changes: +ACET325 PO; +CIPR500 PO; +METR500 PO; +PANT40 PO; +SERT50
[2021-01-11] MEDS ORDERED: ALLEGRA ALLERGY60 MG PO (18:52)
[2021-01-11] MEDS ORDERED: EPIPEN0.3 MG/0.3 IM (18:52)
== END 2021-01-11 19:23 | disposition home or self-care (01) ==
LOC: ER 16:06
DX: T63.441A Toxic effect of venom of bees, accidental (unintentional), initial encounter (principal); K21.9 Gastro-esophageal reflux disease without esophagitis; Z79.899 Other long term (current) drug therapy; Z88.0 Allergy status to penicillin; Z88.8 Allergy status to other drugs, medicaments and biological substances; Z88.1 Allergy status to other antibiotic agents
CPT/HCPCS: 99284; A9270

== ENCOUNTER 2022-04-08 08:19 | Emergency (ER) | payer OTHER ==
[~2022-04-08] VITALS: Ht 160 cm; Wt 94.3 kg
[~2022-04-08 08:19] MED LIST changes: +ALLEGRA ALLERGY60 MG PO; +EPIPEN0.3 MG/0.3 IM; +LOSA25 PO; +Norco 10-325 T1 EACH PO; +OMEP20ER
[2022-04-08] MEDS ORDERED: Monodox100 MG PO (13:03)
[2022-04-08] MEDS ORDERED: HYDR1TAB94 PO (13:03)
== END 2022-04-08 13:43 | disposition home or self-care (01) ==
LOC: ER 08:19
DX: S61.551A Open bite of right wrist, initial encounter (principal); S61.252A Open bite of right middle finger without damage to nail, initial encounter; S60.131A Contusion of right middle finger with damage to nail, initial encounter; W54.0XXA Bitten by dog, initial encounter; Z88.0 Allergy status to penicillin; Z88.8 Allergy status to other drugs, medicaments and biological substances; Z88.1 Allergy status to other antibiotic agents; Z79.899 Other long term (current) drug therapy; K21.9 Gastro-esophageal reflux disease without esophagitis
CPT/HCPCS: 73130; A9270

== ENCOUNTER 2023-02-11 09:56 | Day surgery (SDC) | payer OTHER ==
[~2023-02-11] VITALS: Ht 160 cm; Wt 88.4 kg
[2023-02-11] MEDS ORDERED: OXYC5 (11:04)
[2023-02-11 12:36] VITALS: BP 135/96
--- NOTE | 2023-02-11 12:37 | NUR ---
02/11/23 1237 Romana Black IV DC'D CATH INTACT. PT TOLERATED WELL. GAUZE/COBAN IN PLACE
== END 2023-02-11 12:37 | disposition home or self-care (01) ==
LOC: ORSCSDS 09:56
PROVIDERS: Internal Medicine Gastroenterology
PROC: 0DJD8ZZ Inspection of Lower Intestinal Tract, Via Natural or Artificial Opening Endoscopic (ICD-10-PCS; principal; 2023-02-11 12:00)
PROC: 0DB58ZX Excision of Esophagus, Via Natural or Artificial Opening Endoscopic, Diagnostic (ICD-10-PCS; principal; 2023-02-11 12:00)
DX: K22.70 Barrett's esophagus without dysplasia (principal); K21.9 Gastro-esophageal reflux disease without esophagitis; K59.09 Other constipation; K57.30 Diverticulosis of large intestine without perforation or abscess without bleeding; K44.9 Diaphragmatic hernia without obstruction or gangrene; K64.8 Other hemorrhoids; Z15.09 Genetic susceptibility to other malignant neoplasm; R10.9 Unspecified abdominal pain; R14.0 Abdominal distension (gaseous); J45.909 Unspecified asthma, uncomplicated; K46.0 Unspecified abdominal hernia with obstruction, without gangrene; F32.A Depression, unspecified; K76.0 Fatty (change of) liver, not elsewhere classified; E88.89 Other specified metabolic disorders; F17.210 Nicotine dependence, cigarettes, uncomplicated; Z79.899 Other long term (current) drug therapy
CPT/HCPCS: 88305; J2001; J2704; J7120

== ENCOUNTER 2023-07-19 14:39 | Emergency (ER) | payer OTHER ==
[~2023-07-19] VITALS: Ht 157.5 cm; Wt 93.9 kg
[~2023-07-19 14:39] MED LIST changes: +OXYC5
[2023-07-19 14:46] VITALS: BP 134/81
[2023-07-19 15:19] LABS: BASOPHILS ABSOLUTE AUTO 0.06 K/mm3 (0.00-0.23); BASOPHILS PERCENT AUTO 1 % (0-2); EOSINOPHILS ABSOLUTE AUTO 0.54 K/mm3 (0.00-0.68); EOSINOPHILS PERCENT AUTO 5 % (0-6); Hematocrit 35.8 % (33.0-51.0); Hemoglobin 11.9 g/dL (11.5-16.0); IMMATURE GRAN ABSOLUTE AUTO 0.05 K/mm3 (0.00-0.10); IMMATURE GRAN PERCENT AUTO 0 % (0-1); LYMPHOCYTES ABSOLUTE AUTO 3.37 K/mm3 (0.84-5.20); LYMPHOCYTES PERCENT AUTO 28 % (21-46); MONOCYTES ABSOLUTE AUTO 0.46 K/mm3 (0.16-1.47); MONOCYTES PERCENT AUTO 4 % (4-13); Mean Corpuscular HGB 28.6 pg (26.0-34.0); Mean Corpuscular HGB Conc 33.2 g/dL (31.5-36.5); Mean Corpuscular Volume 86 fL (80-100); Mean Platelet Volume 9.2 fL (9.1-12.4); NEUTROPHILS PERCENT AUTO 63 % (41-73); Platelet Count 387 K/mm3 (150-400); RDW Coefficient Variation 12.3 % (11.7-14.2); RDW Standard Deviation 38.8 fL (35.1-46.3); Red Blood Cell Count 4.16 M/mm3 (3.80-5.20); White Blood Cell Count 11.98 K/mm3 (4.00-11.30)
[2023-07-19 15:37] LABS: Albumin, Blood 3.6 g/dL (3.4-5.0); Bilirubin, Total 0.4 mg/dL (0.1-1.0); Bun/Creatinine Ratio 10.6 (12.0-20.0); Calcium, Blood 9.8 mg/dL (8.5-10.1); Creatinine, Blood 0.85 mg/dL (0.40-1.00); Globulin, Blood 3.7 g/dL (2.2-4.0); Potassium, Blood 3.9 mmol/L (3.5-5.5); Total Protein, Blood 7.3 g/dL (6.4-8.2)
== END 2023-07-19 15:52 | disposition left against medical advice (07) ==
LOC: ER 14:39
PROVIDERS: Physician Assistant
DX: R07.9 Chest pain, unspecified (principal); Z53.29 Procedure and treatment not carried out because of patient's decision for other reasons
CPT/HCPCS: 71046; 80053; 84484; 85025; 85379; 93005; 93010; 99282-25

== ENCOUNTER 2023-07-20 13:39 | Emergency (ER) | payer OTHER ==
[~2023-07-20] VITALS: Ht 157.5 cm; Wt 93.9 kg
[2023-07-20 14:18] VITALS: BP 152/90
== END 2023-07-20 15:47 | disposition home or self-care (01) ==
LOC: ER 13:39
DX: R79.1 Abnormal coagulation profile (principal); R07.89 Other chest pain; R06.02 Shortness of breath; F32.A Depression, unspecified; K21.9 Gastro-esophageal reflux disease without esophagitis; Z98.1 Arthrodesis status; Z88.0 Allergy status to penicillin; Z88.1 Allergy status to other antibiotic agents; Z88.8 Allergy status to other drugs, medicaments and biological substances; Z79.899 Other long term (current) drug therapy
CPT/HCPCS: 71260; 99283-25; Q9967

== ENCOUNTER 2024-05-01 07:09 | Emergency (ER) | payer OTHER ==
[~2024-05-01] VITALS: Ht 160 cm; Wt 103.4 kg
[~2024-05-01 07:09] MED LIST changes: -OMEP20ER; +OMEP20ER PO
[2024-05-01] MEDS ORDERED: Midazolam HCl 1MG / ML 2ML Vial IV ONE ×2 (07:20→11:50)
[2024-05-01 07:39] LABS: BASOPHILS ABSOLUTE AUTO 0.06 K/mm3 (0.00-0.23); BASOPHILS PERCENT AUTO 1 % (0-2); EOSINOPHILS ABSOLUTE AUTO 0.24 K/mm3 (0.00-0.68); EOSINOPHILS PERCENT AUTO 3 % (0-6); Hematocrit 44.9 % (33.0-51.0); Hemoglobin 14.7 g/dL (11.5-16.0); IMMATURE GRAN ABSOLUTE AUTO 0.05 K/mm3 (0.00-0.10); IMMATURE GRAN PERCENT AUTO 1 % (0-1); LYMPHOCYTES ABSOLUTE AUTO 3.02 K/mm3 (0.84-5.20); LYMPHOCYTES PERCENT AUTO 31 % (21-46); MONOCYTES PERCENT AUTO 3 % (4-13); Mean Corpuscular HGB 29.6 pg (26.0-34.0); Mean Corpuscular HGB Conc 32.7 g/dL (31.5-36.5); Mean Corpuscular Volume 91 fL (80-100); NEUTROPHILS ABSOLUTE AUTO 6.01 K/mm3 (1.96-9.15); NEUTROPHILS PERCENT AUTO 62 % (41-73); Platelet Count 257 K/mm3 (150-400); RDW Coefficient Variation 14.9 % (11.7-14.2); RDW Standard Deviation 49.3 fL (35.1-46.3); Red Blood Cell Count 4.96 M/mm3 (3.80-5.20); White Blood Cell Count 9.68 K/mm3 (4.00-11.30)
[2024-05-01] MEDS ORDERED: Phentermine HCl30 MG PO (07:50)
[2024-05-01] MEDS ORDERED: Methocarbamol750 MG PO (07:50)
[2024-05-01] MEDS ORDERED: PREG150 PO (07:50)
[2024-05-01] MEDS ORDERED: ZANAFLEX413 PO (07:51)
[2024-05-01 08:12] LABS: Free Thyroxine 1.05 ng/dL (0.70-1.60); Magnesium, Blood 2.3 mg/dL (1.6-2.4); Thyroid Stimulating Hormone 0.896 uIU/mL (0.360-4.800)
[2024-05-01 08:13] LABS: Albumin, Blood 3.8 g/dL (3.4-5.0); Albumin/Globulin Ratio 1.2 (0.8-1.8); Bilirubin, Total 0.7 mg/dL (0.1-1.0); Calcium, Blood 8.9 mg/dL (8.5-10.1); Creatinine, Blood 0.86 mg/dL (0.40-1.00); Globulin, Blood 3.1 g/dL (2.2-4.0); Potassium, Blood 4.2 mmol/L (3.5-5.5); Total Protein, Blood 6.9 g/dL (6.4-8.2)
[2024-05-01 13:13] VITALS: BP 140/80
== END 2024-05-01 13:29 | disposition home or self-care (01) ==
LOC: ER 07:09
PROVIDERS: Emergency Medicine
DX: R25.1 Tremor, unspecified (principal); K21.9 Gastro-esophageal reflux disease without esophagitis
CPT/HCPCS: 72156; 80053; 83735; 84439; 84443; 85025; 85651; 86141; 96374-59; 99284-25; A9579; J2250

== ENCOUNTER 2024-08-23 08:36 | Day surgery (SDC) | payer OTHER ==
[~2024-08-23] VITALS: Ht 160 cm; Wt 100.8 kg
[~2024-08-23 08:36] MED LIST changes: +Lactated Ringer's 1,000 ML IV ONE; +Methocarbamol750 MG PO; +PREG150 PO; +Phentermine HCl30 MG PO; +ZANAFLEX413 PO
[2024-08-23] MEDS ORDERED: BUPRENO-NALOX1 EAC2 SL (09:16)
[2024-08-23] MEDS ORDERED: Lactated Ringer's 1,000 ML IV ONE (09:18)
--- NOTE | 2024-08-23 09:31 | NUR ---
08/23/24 0931 Thaddeus Mohr PT STATES THROAT SWELLS UP WITH PCN. RN INFORMED OR TEAM AND ANESTHESIA ABOUT THIS ANCEF IS ORDERED. AWAITING WORD FROM DR COOL.
[2024-08-23] MEDS ORDERED: CeFAZolin Sodium 2,000 MG VIAL ONE (09:42)
[2024-08-23] MEDS ORDERED: NS 50 ML IV ONE (09:42)
[2024-08-23] MEDS ORDERED: propofoL 20 ML IV ONE (10:00)
[2024-08-23] MEDS ORDERED: FentaNYL Citrate 50 MCG/ML 2 ML Injection ONE ×2 (10:00→10:53)
[2024-08-23] MEDS ORDERED: Dexamethasone Sod Phos 10 MG/ML 1ML VIAL ONE (10:01)
[2024-08-23] MEDS ORDERED: Ondansetron HCl 2 MG / ML 2ML Vial ONE (10:01)
[2024-08-23] MEDS ORDERED: Ketorolac Tromethamine 30mg Vial ONE (10:24)
[2024-08-23 10:55] VITALS: BP 124/85
--- NOTE | 2024-08-23 11:04 | NUR ---
08/23/24 1104 DON PATEL 1058 25 MCG IVP FENTANYL GIVEN FOR PAIN 10/13. SATS 97%, DROWSY. PAIN DESCRIBED "CRAMPING" TO LOWER ABD. BP 132/83
[2024-08-23] MEDS ORDERED: OxyCODONE 5 mg/Acetamin 325 mg TABLET ONE (11:21)
== END 2024-08-23 11:43 | disposition home or self-care (01) ==
LOC: ORSCSDS 08:36
PROVIDERS: Obstetrics & Gynecology
PROC: 0UDB8ZX Extraction of Endometrium, Via Natural or Artificial Opening Endoscopic, Diagnostic (ICD-10-PCS; principal; 2024-08-23 10:00)
DX: N95.0 Postmenopausal bleeding (principal); Z79.899 Other long term (current) drug therapy; J45.909 Unspecified asthma, uncomplicated; K21.9 Gastro-esophageal reflux disease without esophagitis; E66.9 Obesity, unspecified; Z68.39 Body mass index [BMI] 39.0-39.9, adult
CPT/HCPCS: 88305; A9270; J0690; J1100; J1885; J2405; J2704; J3010; J7120

== ENCOUNTER 2024-12-08 18:00 | Emergency (ER) | payer OTHER ==
[~2024-12-08] VITALS: Ht 160 cm; Wt 95.2 kg
[~2024-12-08 18:00] MED LIST changes: +BUPRENO-NALOX1 EAC2 SL; -Lactated Ringer's 1,000 ML IV ONE
[2024-12-08 18:53] VITALS: BP 142/90
[2024-12-08] MEDS ORDERED: Ketorolac Tromethamine 30mg Vial IM ONE (21:10)
[2024-12-08] MEDS ORDERED: CLIN300 PO (21:35)
== END 2024-12-08 21:42 | disposition home or self-care (01) ==
LOC: ER 18:00
DX: K04.7 Periapical abscess without sinus (principal); K21.9 Gastro-esophageal reflux disease without esophagitis; Z79.899 Other long term (current) drug therapy; Z88.0 Allergy status to penicillin; Z88.1 Allergy status to other antibiotic agents; Z88.8 Allergy status to other drugs, medicaments and biological substances
CPT/HCPCS: 96372; 99282-25; A9270; J1885